=== PATIENT | female | born 1935 | race Caucasian/White ===

== ENCOUNTER → 2019-06-30 14:51 | Outpatient (CLI) | payer MEDICARE, SELFPAY ==
[2019-06-30 15:17] LABS: Bacteria Urine None Seen; RBC Urine None Seen (0-5/HPF)
[2019-06-30 15:29] LABS: Appearance Urine UA CLEAR; Bilirubin Urine UA NEGATIVE (NEGATIVE); Color Urine UA YELLOW; Glucose Urine UA NEGATIVE (Negative); Ketones Urine UA TRACE (NEGATIVE); Leukocyte Esterase Urine UA TRACE (NEGATIVE); Nitrite Urine UA NEGATIVE (Negative); Occult Blood Urine UA NEGATIVE (Negative); Protein Urine UA TRACE (Negative); Specific Gravity Urine UA >=1.030 (1.000-1.035); Urobilinogen Urine UA 0.2 E.U./dL (0.2)
[2019-06-30 15:30] LABS: Add Manual Diff / Slide Review NO; Basophils Absolute Auto 100 /uL (0-100); Basophils Percent Auto 0.7 % (0-2); Eosinophils Absolute Auto 1100 /uL (0-450); Eosinophils Percent Auto 11.2 % (2-4); Hematocrit 36.6 % (36-46); Hemoglobin 12.1 g/dL (12.0-16.0); Lymphocytes Absolute Auto 1500 /uL (1100-4500); Lymphocytes Percent Auto 16.3 % (25-40); Mean Corpuscular Hemoglobin 29.8 PG (26-34); Mean Corpuscular Volume 90.2 fL (80-100); Monocytes Absolute Auto 700 /uL (0-900); Monocytes Percent Auto 7.5 % (3-14); Neutrophils Absolute Auto 6100 /uL (1500-7000); Neutrophils Percent Auto 64.3 % (50-75); Platelet Count 289 X10^3/uL (150-400); Red Blood Cell Count 4.06 X10^6/uL (4.0-5.2); Red Cell Distribution Width 13.5 % (11.6-14.8); White Blood Cell Count 9.5 X10^3/uL (4.5-11.0)
[2019-06-30 15:36] LABS: Mucus Urine 2+ (Negative); Squamous Epithelial Cell Urine 1-5 /HPF (0-5/HPF); Transitional Epi Cells Urine 5-10/HPF (0-5/HPF); WBC Urine 1-5/HPF (0-5/HPF)
[2019-06-30 15:37] LABS: Culture Indicated Urine Cult Not Indicated
[2019-06-30 16:24] LABS: Blood Urea Nitrogen 21 mg/dL (7-17); Calcium 9.5 mg/dL (8.4-10.2); Carbon Dioxide 27 mmol/L (22-32); Chloride 102 mmol/L (98-107); Estimated Glomerular Filt Rate > 60.0 mL/min (>60); Glucose 113 mg/dL (80-110); HEMOLYSIS < 15 (0-50); Potassium 4.8 mmol/L (3.4-5.1); Sodium 139 mmol/L (137-145)
[2019-07-01 15:37] LABS: Hemoglobin A1C% w Est Avg Glu 6.5 % (4.0-6.0)
== END ==
PROVIDERS: Family Provider Family Medicine Geriatric Medicine; PCP Family Medicine Geriatric Medicine; Visit Provider Orthopaedic Surgery
DX: Z01.818 Encounter for other preprocedural examination (principal); Z01.812 Encounter for preprocedural laboratory examination; N39.9 Disorder of urinary system, unspecified; Z13.1 Encounter for screening for diabetes mellitus; R73.9 Hyperglycemia, unspecified
CPT/HCPCS: 36415; 80048; 81001; 83036; 85025; 93005

== ENCOUNTER 2019-10-28 09:43 | Inpatient (IN) | payer MEDICARE, SELFPAY ==
[2019-10-21 08:50] VITALS: BMI 26.2
[2019-10-28] VITALS (13 sets, daily range): BP systolic 94–143; BP diastolic 46–71; PULSE 68–84; RESP 15–20; TEMP 35.8–37.1; O2SAT 92–100; BMI 26.2
--- NOTE | 2019-10-28 | DI.RAD.S_ITS ---
PROCEDURE: XR HIP W PEL IF DONE RT 2V INDICATIONS: ANTERIOR RIGHT HIP TECHNIQUE: AP pelvis and lateral view of the right hip acquired. COMPARISON: [facility], CR, HIP 2V RIGHT, 05/10/2008, 10:02. FINDINGS: Spot fluoroscopic images demonstrating right hip arthroplasty in expected intraoperative alignment. Dictated by: Luis Boss M.D. on 10/28/2019 at 14:38 Approved by: Luis Boss M.D. on 10/28/2019 at 14:39
--- NOTE | 2019-10-28 06:00 | DI.RAD.S_ITS ---
PROCEDURE: XR HIP W PEL IF DONE RT 2V INDICATIONS: RIGHT POST OPERATIVE HIP TECHNIQUE: AP pelvis and lateral view of the right hip acquired. [facility] 2[facility], 10/28/2019, 13:25. FINDINGS: Bones: Patient is status post right hip arthroplasty, with hardware components in expected positions. The hip joint appears congruent. The visualized bony structures appear intact. Lower lumbar spondylosis. Soft tissues: Overlying postoperative changes are noted. No suspicious soft tissue densities. Presumed calcified fibroids projecting in the pelvis IMPRESSION: Expected postoperative appearance Dictated by: Luis Boss M.D. on 10/28/2019 at 17:10 Approved by: Luis Boss M.D. on 10/28/2019 at 17:11
[2019-10-28] MEDS: VANCOMYCIN 1,000 MG/200 ML PIGGYBACK 200 MG IV (10:15)
[2019-10-28] MEDS: LACTATED RINGERS 1,000 ML 42 ML IV ×2 (10:15→13:09)
[2019-10-28] MEDS: PREGABALIN 75 MG CAPSULE PO (10:16)
[2019-10-28] MEDS: CELECOXIB 200 MG CAPSULE PO (10:16)
[2019-10-28] MEDS: ACETAMINOPHEN 325 MG TABLET 975 MG PO (10:16)
--- NOTE | 2019-10-28 10:43 | P.OP_ITS ---
Operative Date/Time/Diagnoses Date of procedure: 10/28/19 Time of procedure: 10:43 Pre-op diagnosis: right hip OA Post-op diagnosis: same Procedure & Clinicians Procedure: right total hip arthroplasty anterior approach Same procedure as scheduled: Yes Indications: The patient has had progressively worsening right hip pain with radiographic changes consistent with arthritis. Non-operative management has failed and the patient has requested total hip replacement. The risks, benefits and alternatives to surgery were discussed with the patient prior to proceeding. Risks discussed included, but were not limited to, failure to relieve pain, leg length discrepancy, dislocation, stiffness, infection, nerve damage, deep venous thrombosis, pulmonary embolism, stroke, coma, heart attack, permanent paralysis and , as well as the potential need for eventual revision of the prosthetic. Surgeon: Doris Huang [employer]porary Help [employer] Referral Clerk: Chong Pretty Anesthesia Type: General and Spinal Operative Notes Findings: severe right hip OA, soft bone, adequate stability Closure Type: primary Specimen(s): none sent Prosthetic devices, grafts, tissues, transplants, or devices: Huang [employer]hew R3 50 cup, 32 by -3 femoral head, 16.5 mm screw, size 5 standard offset anthology Estimated Blood Loss (mL): 250 Blood products transfused: none Procedure in detail: The patient was brought to the operating room. Patient was carefully positioned in the supine position. Time-out was performed and antibiotics were given. Anesthesia was induced. She was positioned in the on the table in order to allow hyperextension of the hip. The right lower extremity was prepped and draped in a standard sterile fashion. An anterior right hip incision was made 1 fingerbreadth lateral to the anterior superior iliac spine and extended distally towards the greater trochanter. Dissection was carried out through skin and subcutaneous tissues. The skin and subcutaneous tissues were carefully injected with Lidocaine with epi. Superficial hemostasis was achieved. The fascia over the tensor fascia marina was defined and incised with a knife. Two Allis clamps were used to grasp the fascia. Tensor fascia marina was retracted laterally. A gelpi retractor was placed. Dissection was carried out down along the neck. The circumflex vessels were carefully identified and cauterized with the Aqua Mantis. There was good visualization of the femoral neck. A Cobra was placed superior to the neck and the gluteus fibers were carefully stripped from that superior aspect of the capsule. A 2nd retractor was placed along the inferior aspect of the neck. The rectus insertion along the capsule was partially released. A 3rd retractor that was then gently placed over the rim of the acetabulum under the rectus. Capsule was carefully incised and released from the intertrochanteric line circumferentially superior to the mid sagittal line and inferiorly to the mid sagittal line until the lesser trochanter was palpable. A tag stitch was placed both in the superior and inferior limb of the capsular insertion. Along the acetabulum capsule was also released up to the mid sagittal 12:00 position. A portion of the labrum was resected. A saw was used to perform an osteotomy at the level of the intertrochanteric line and the junction of the superior femoral neck leaving approximately 1 finger breath of residual inferior neck above the lesser trochanter. A 2nd cut was made along the femoral neck at the base of the head and a napkin ring of neck was removed. Corkscrew was placed in the femoral head and the head was removed without difficulty. Retractors were then repositioned around the acetabulum. Residual labrum was resected and additional osteophytes were removed. A reamer that was 4 mm below the templated size was placed by hand in the acetabulum and it was reamed to centralize the acetabulum. It was then reamed up to 2 under the templated size and fluoroscopy was brought in to confirm the position of the reaming and depth of reaming. I reamed 1 under the anticipated size and touched the rim with line to line reaming. A trial cup was placed and noted that it was appropriately sized and fluoroscopy confirmed position and depth. The component was open and inserted without difficulty fluoroscopic imaging was used to confirm that the cup had been adequately seated and was well positioned. The for cup was further stabilized with a single 6.5 mm screw. The cup was tested and noted to be stable. Attention was then directed to the femur. The femur was gently hyperextended additional capsular release was performed as needed in order to allow adequate visualization of the proximal femur with elevation of the femur. Patient was placed in a hyperextended slightly adducted position with maximum external rotation. Box osteotome was used to check for any residual neck as well as sclerotic bone along the trochanter. [place] pepper was placed in the femur. Additional broaching was performed. Canal finder was used to determine the alignment of the canal and position. Size 1 broach was placed. The canal was then appropriately broached up to the templated size as long as there was adequate stability of the broach and serial advancement of the broach without excessive impingement. Specific attention was directed at avoiding varus attempting to direct the distal aspect of the broach more anteriorly and avoiding excessive anteversion. Trial reduction showed acceptable range of motion, good stability, no posterior impingement, caodaism of leg length and appropriate lateral shuck. I also hyperflexed the hip and checked that there was no impingement anteriorly and there was good stability with flexion, adduction and internal rotation. Marcaine and Exparel were injected.. The stem was placed without difficulty. Repeat trial reduction and x-ray showed acceptable overall position, length, and no evidence of the femoral fracture. Final head was placed. Wound was meticulously irrigated with normal saline. The hip was reduced and additional Exparel and Marcaine were injected. The capsule was closed with interrupted nonabsorbable sutures. The fascia of the tensor was closed with interrupted and running Vicryl. No drain was placed. Any tensor fascia marina muscle that appeared to be contused or injured which was a minimal amount was carefully resected. Capsule around the tensor was injected with Exparel and Marcaine. The skin was closed with barbed stitches for the subcutaneous tissue and skin. We also used surgical glue. The wound was dressed sterilely. Brief Betadine soak was also used and was meticulously irrigated with normal saline. Patient was transferred to recovery room in satisfactory condition. Complications: none Post-operative Condition: stable Disposition: Acute Care Plan for aftercare: The patient will be maintained on a standard total hip replacement protocol with weight bearing as tolerated and anterior hip precautions. The patient will receive Aspirin and sequential compression devices for DVT prophylaxis. The patient will be discharged home when safe for the home environment.
--- NOTE | 2019-10-28 10:43 | PM.PREOP ---
Pre-operative Note Interval Note History & Physical reviewed/Exam performed by Physician: Yes Changes to H&P: No
[2019-10-28] MEDS: CEFAZOLIN 2 GM/100 ML FROZ.PIGGY IV ×2 (11:31→20:10)
--- NOTE | 2019-10-28 12:06 | SUR.OPER ---
Supine on padded [place]aton table with bilateral legs secured in padded positioning boots and suspended in positioning spars, operative leg in traction per surgeon. Head on one pillow. Arm on non-operative side secured on padded armboard <90 degrees abduction. Arm on operative side padded and resting across chest then secured with tape over sheet. Padded perineal post in place per surgeon.
[2019-10-28] MEDS: BUPIVACAINE LIPOSOME 266 MG/20 ML VIAL INJ (13:57)
[2019-10-28] MEDS: BUPIVACAINE 0.25% W/ EPI 30 ML VIAL INJ (13:57)
--- NOTE | 2019-10-28 15:16 | SUR.PHASEI ---
Report called to [facility]
--- NOTE | 2019-10-28 15:27 | SUR.PHASEI ---
Patient transferred to the floor with belongings bag, brown bag, glasses and red jacket. VS Stable. O2 sat 87%RA, 98% 2lnc. Report given to Tunde. Rt hip dressing CDI. Patient moving romana feet.
--- NOTE | 2019-10-28 15:46 | PC.NURSE ---
Pt arrived from PACU at approx 1510. Drowsy but alert and oriented. VSS 2L NC. Drsg c/d/i to anterior hip. Float RN completing admission assessment. Student nurse and instructor connecting IVF. Supportive spouse at bedside. Oriented to room and call system. Bed alarm on for safety.
[2019-10-28] MEDS: OXYCODONE IR 5 MG TABLET PO ×2 (15:54→20:06)
[2019-10-28] MEDS: LACTATED RINGERS 1,000 ML 125 ML IV (16:01)
--- NOTE | 2019-10-28 16:08 | PC.NURSE ---
IV site on R wrist was flushed. Tubing is patent. IV site is asymptomatic and intact. IV fluids running LR now @ 125 mls/hr.
[2019-10-28] MEDS: ACETAMINOPHEN 325 MG TABLET 650 MG PO ×2 (16:29→20:07)
[2019-10-28] MEDS: IBUPROFEN 400 MG TABLET PO ×2 (16:34→20:07)
[2019-10-28] MEDS: METFORMIN HCL 500 MG TABLET PO (20:08)
[2019-10-28] MEDS: ASPIRIN EC 81 MG TABLET PO (20:08)
[2019-10-28] MEDS: DOCUSATE 100 MG CAPSULE PO (20:09)
--- NOTE | 2019-10-28 22:19 | PC.NURSE ---
Patient arrived to unit around 15:10. Patient is alert and awake with at the bedside. Recieved pain medication around 20:10, Acetaminophen 650mg, ibuprofen 400mg and oycodone 5mg with Nurse Sidra. Reporting a pain of 4/10 and states that it is tolerable. She states that she has no pain or numbness. Got up and went to the bathroom with a front wheeled walker and a one person assist around 20:00 She is now in bed with call light in place and states she is comfortable. Patient states she will call when she wants to get up and go to the bathroom again. Bed is in low and locked position.
[2019-10-29] VITALS (7 sets, daily range): BP systolic 106–171; BP diastolic 47–75; PULSE 71–78; RESP 17–19; TEMP 36.5–36.7; O2SAT 91–97
[2019-10-29] MEDS: OXYCODONE IR 5 MG TABLET PO ×3 (00:04→10:09)
[2019-10-29] MEDS: IBUPROFEN 400 MG TABLET PO ×6 (00:41→21:05)
[2019-10-29] MEDS: LACTATED RINGERS 1,000 ML 125 ML IV (00:42)
[2019-10-29] MEDS: CEFAZOLIN 2 GM/100 ML FROZ.PIGGY IV (04:31)
[2019-10-29 05:50] LABS: Hematocrit 26.1 % (36-46); Hemoglobin 9.1 g/dL (12.0-16.0)
--- NOTE | 2019-10-29 08:51 | PC.NURSE ---
Addendum entered by Dottie Portillo R.N. 10/29/19 15:52: Pt ambulated in room to go to with 1PA, tolerated well, sat in chair most of shift, able to reposition self. Pt eager for afternoon PT session, Spoke with Kadi, PT at 1430, will plan to see pt next. Kadi updated at 1450, pt has daughter that needs to drive from [place] that will be staying with the Pt and pt's home on [facility]. After PT session, PT reported to both this advertising writer and Evening Rn Sidra that pt walked a short distance and felt nauseated, returned to bed, pt will need more PT sessions prior to discharge. Original Note: Day Shift- Pt ambulated OOB with PT, PT Ferny reported pt had minimal walking in room, felt dizzy, sat in chair, BP 171/75, Pulse 78. Upon reassessment, BP decreased to 127/53, pulse 72. Pt rates 2/10 aching to right anterior hip with rest, 4-5/10 with movement and settles with rest, ice pack in place, pt aware to have intermittently. CMS +. Right hip anterior aquacel dressing CDI. Call light within reach, Pt's Andre in room as well.
--- NOTE | 2019-10-29 08:56 | PT.IIE ---
Current Diagnoses Unilateral primary osteoarthritis, right hip (10/28/19) Surgery Performed Operation Date: 10/28/19 12:15 Actual Procedures p Total Hip Arthroplasty/Anterior Approach(Right) - Doris Huang MD Surgical History (Last Updated 10/26/19 @ 14:10 by Richa Dupree, RN) History of arthroplasty of left hip (Acute) Hx of bilateral cataract extraction (Acute 2015) Medical History (Last Updated 10/26/19 @ 14:13 by Richa Dupree RN) Asthma (Acute) Depression (Acute) Hearing loss (Acute) HLD (hyperlipidemia) (Acute) HTN (hypertension) (Acute) Osteoarthritis (Acute) Pre-diabetes (Acute) RLS (restless legs syndrome) (Acute) Physical Therapy Inpatient Evaluation/Re-Eval M1 PT/OT-IP Prior Functional Status Start: 10/29/19 07:44 Freq: NEEDED Status: Active Protocol: Document 10/29/19 07:45 HH (Rec: 10/29/19 08:55 HH [id number]) Medical Review Prior Functional Status Medical History Reviewed Yes Diet/Fluid Consistency Regular Communication no communication deficits noted. ABle to make needs known Mobility and Gait Pt does not use any AD for all mobility. She states she tends to walk with an antalgic gait. Activities of Daily Living and IADL's Independent for all ADLs and IADLs. does assist her to charisse socks due to limited hip mobility. Social History Household Members spouse Living Arrangements House Number of Floors (Floors) Two Floors Number of Stairs To Enter/Railing? Daylight saving apartment Pt lives on [facility] [facility] [address]. Has access to bathroom and bedroom tub shower on [facility], walk in shower on downstairs with showerseat and grab bars 3 KILEY with L rail and pillar for support. Home Environment Standard Height Toilet,Walk in Shower Home Equipment Straight Cane,Raised Toilet Seat w/Armrests,Cash Room Clerk,Grab Bars Near Toilet,Grab Bars In Shower Employment Status Retired Additional Social History Comment Pt lives with her Luis in [place]. Luis uses a SPC for mobility but he states he was able to assist pt as needed. (He also has POARCH). Pt states her dtr will be able to pick her up upon d/c and will stay with her as long as she needed. M2 PT-IP Current Condition Start: 10/29/19 07:44 Freq: NEEDED Status: Active Protocol: Document 10/29/19 07:45 (Rec: 10/29/19 08:55 [id number]) Physical Therapy Current Condition Current Condition Evaluation Date 10/29/19 Treatment Diagnosis R BOLA (ant approach), difficulty in walking Onset Date 10/28/19 Precautions Anterior Hip Precautions No Hip Extension,No Hip External Rotation Weight Bearing Status Weight Bearing Status Weight Bear as Tolerated M3 PT-IP Subjective Start: 10/29/19 07:44 Freq: NEEDED Status: Active Protocol: Document 10/29/19 07:45 HH (Rec: 10/29/19 08:55 [id number]) Subjective Physical Therapy Visit Type Type Initial Evaluation Visit Start Time 07:45 Visit Stop Time 08:17 Total Visit Minutes 32 Notes Pt's attended session Number of COMPOSITE TECHNICIAN Visits 0 Physical Therapy Visit Comments Patient Comments Im feeling pretty good for my hip but i start getting dizzy now. Patient Goals To return home with and dtr assistance. Therapy Pain Assessment Pain When Pain Assessed During Mobility Pain Present Pain Present Pain Reported Location Right Anterior Hip Intensity 3 Description Aching Pain Management Techniques Apply Cold,Timing of Activity with Medications M4 PT-IP Mobility and Gait Start: 10/29/19 07:44 Freq: NEEDED Status: Active Protocol: Document 10/29/19 07:45 HH (Rec: 10/29/19 08:55 [id number]) PT-Bed Mobility Assessment Supine to Sit Supine to Sit Contact Guard Assistance,Head of Bed Elevated,Bedrails Scooting Scooting to Edge of Bed Contact Guard Assistance PT-Transfer Assessment Sit to and From Stand Sit to and from Stand Contact Guard Assistance,Use of Upper Extremities Equipment Transfer Assistive Device Gait Belt,Front Wheeled Walker Orthotic/Prosthetic Devices or Brace: No Transfers Transfer Destination Bed,Chair Transfer Technique amb with FWW Transfer Ability Level of Assist Contact Guard Assistance Comments Mobility Comments Pt was in bed upon assessment. Spouse at bedside. BP at 111/ 47 HR 73. Pt stated she just went to bathroom with nursing staff an hour ago with 1PA only. Pt reports she started having new onset of dizziness and denied any hx of balance/ vestibular issues. Pt rested for 5 mins and BP remained stable. She felt better with HOB elevated to 40 degrees then proceeded to complete supine to sit by using gait belt to pivot her RLE towards L side. Pt overall did it slowly. She sat at the EOB for 5 mins due to continuous dizziness BP at 130/58 HR 80. Pt then stood up with staggered stance and FWW with CGA. She then amb from L side of the bed to bedside chair. Pt reports hip pain increased and amb with a mild antalgic gait. She was able to approach chair appropriately and descend with the use of armrests and staggered stance. But she reports increased dizziness and BP elevated to 171/75 HR 78 and took 6 mins to return to 127/53 HR 72. Notified nursing. Call light placed within reach. Gait Assessment Gait Gait Assistance Required: Contact Guard Assist Distance (Feet) 8 Able to Maintain Weight Bearing Status Yes During Gait Assistive Devices Assistive Device Gait Belt,Front Wheeled Walker Orthotic/Prosthetic Devices or Brace: No Gait Deviations General Gait Pattern Within Normal Limits,Antalgic, Decreased Stride Length, Decreased Feet Clearance Factors Limiting Gait Function Factors Limiting Gait Function Decreased Activity Tolerance, Decreased Strength,Limited Range of Motion,Pain,Poor Balance Comments Gait Comments see mobility comments Stair Climbing Assessment Comments Stair Climbing Comments unable to assess due to dizziness PT-Balance Assessment Sitting Balance and Reactions Static Sitting Balance Ability Normal Dynamic Sitting Balance Ability Normal Standing Balance and Reactions Static Standing Balance Ability Normal Dynamic Standing Balance Ability Normal Device Used FWW M5 PT-IP Objective Assessments Start: 10/29/19 07:44 Freq: NEEDED Status: Active Protocol: Document 10/29/19 07:45 (Rec: 10/29/19 08:55 [id number]) Orientation Orientation/Cognition Level of Alertness Alert Orientation Name,Age,Birthday,Month,Date, Year,Day of Week,Place, Situation Language Function Ability No Deficits Noted Safety Awareness Understands Safety Issues Gross Range of Motion Upper Extremity ROM Assessment Within Functional Limits Lower Extremity ROM Assessment Right Impaired Strength Upper Extremity Strength Assessment Within Functional Limits Lower Extremity Strength Assessment Right Impaired Hip 4/5 Knee 4+/5 Ankle 5/5 Coordination Assessment Gross Coordination Gross Coordination WNL Sensation Assessment Sensation Gross Sensation WNL Muscle Tone Muscle Tone WNL Yes M6 PT-IP Treatment Start: 10/29/19 07:44 Freq: NEEDED Status: Active Protocol: Document 10/29/19 07:45 HH (Rec: 10/29/19 08:55 [id number]) Physical Therapy Treatment Exercises Exercises Ankle Pumps,Quad Sets,Heel Slides Education Education Provided Precautions,Weight Bearing Status,Post-Op Packet,Safety M7 PT-IP Assessment and Plan Start: 10/29/19 07:44 Freq: NEEDED Status: Active Protocol: Document 10/29/19 07:45 HH (Rec: 10/29/19 08:55 [id number]) PT Summary Assessment and Plan Potential Rehabilitation Potential Excellent Status of Condition at Evaluation Evolving Summary Impairments Pain,ROM,Strength,Balance, Sensation,Bed Mobility, Transfers,Gait,Activity Tolerance Assessment Summary This eval is low complexity for this 84yo lady s/p POD 1 R BOLA (anterior approach). Upon assessment, Pt has new onset of dizziness but -ve signs of OHTN. Pt 's BP did elevate to 171/75 after amb possibly due to increase in hip pain. Notified nursing after. Pt overall did fairly well with CGA and FWW but medically unstable at this point which will require 1-2 more visits to observe her progress, but expect pt to be able to return home with family assistance. Goals Bed Mobility Goal Standby Assistance Transfer Goal Standby Assistance,Front Wheeled Walker Gait Goal Standby Assistance,Front Wheel Walker Gait Distance 150 Other Goals 3 KILEY with L rail Days to Meet Goals 3 Frequency of Treatment Frequency Of Treatment Twice a Day Treatment Plan Physical Therapy Treatment Plan Bed Mobility Training,Transfer Training,Gait Training, Therapeutic Exercise,Balance Retraining,Post Op Education, Discharge Planning,Hot or Cold Pack,Manual Therapy Other Recommendations and Next Treatment check VSS Focus mobility as yaritza CG training with the use of gait and stair training Recommendations To Nursing Amount of Assist Needed 1 Person Assist Discharge Recommendations PT Discharge Recommendations Home with Assistance, Outpatient PT Transportation Needs at Discharge Private Vehicle
[2019-10-29] MEDS: LOSARTAN 50 MG TABLET PO (09:01)
[2019-10-29] MEDS: ROSUVASTATIN 10 MG TABLET PO (09:01)
[2019-10-29] MEDS: METFORMIN HCL 500 MG TABLET PO ×2 (09:01→21:05)
[2019-10-29] MEDS: DOCUSATE 100 MG CAPSULE PO ×2 (09:02→21:05)
[2019-10-29] MEDS: CITALOPRAM 20 MG TABLET PO (09:02)
[2019-10-29] MEDS: ASPIRIN EC 81 MG TABLET PO ×2 (09:02→21:05)
[2019-10-29] MEDS: ACETAMINOPHEN 325 MG TABLET 650 MG PO ×3 (09:02→21:04)
--- NOTE | 2019-10-29 13:03 | P.PN_ITS ---
Subjective Subjective Date Patient Seen: 10/29/19 Time Patient Seen: 07:22 Interval history: POD #1 s/p anterior RTHA w Dr. Huang. Complains of mild- moderate pain in hip. Has not mobilized with PT. Voiding without difficulty or assistance. Denies fever, chills, chest pain, shortness of breath. Exam Vital Signs (past 8 hours): - 10/29/19 08:10 10/29/19 08:13 Temperature 98.1 F Pulse Rate 78 72 Respiratory Rate 18 Blood Pressure 171/75 H 127/53 L Pulse Oximetry 97 Oxygen Delivery Method Room Air Oxygen Flow Rate 0 Narrative Exam Narrative: 84 year old female lying comfortably in bed, in no apparent distress. A&Ox3. Dressing CDI, SCDs in place. Sensory function grossly intact to light touch in LE BL. Able to actively dorsiflex/plantar flex BL. Dorsalis pedis 2+ BL. Calves warm, soft, compressible, non tender to palpation. Objective Labs Result Diagrams: 10/29/19 05:05 Labs: Laboratory Results - last 24 hr 10/29/19 05:05 Hgb 9.1 L Hct 26.1 L Assessment & Plan Post-op Postoperative Procedures: Procedures Operation Date: 10/28/19 12:15 Actual Procedures Side Surgeon p Total Hip Arthroplasty/Anterior Approach Right Doris Huang MD Postoperative plan narrative: Possible discharge home today pending PT clearance Continue current pain management Continue SCDs for DVT prophylaxis Mobilize with PT Time Spent With Patient Time with patient: less than 15 minutes Quality VTE Deep Vein Thrombosis/Pulmonary Embolism Present on Admission: No
--- NOTE | 2019-10-29 16:15 | PT.IPTN ---
Current Diagnoses Unilateral primary osteoarthritis, right hip (10/28/19) Surgery Performed Operation Date: 10/28/19 12:15 Actual Procedures p Total Hip Arthroplasty/Anterior Approach(Right) - Doris Huang MD Physical Therapy Treatment Note M2 PT-IP Current Condition Start: 10/29/19 07:44 Freq: NEEDED Status: Active Protocol: Document 10/29/19 07:45 HH (Rec: 10/29/19 08:55 HH [id number]) Physical Therapy Current Condition Current Condition Evaluation Date 10/29/19 Treatment Diagnosis R BOLA (ant approach), difficulty in walking Onset Date 10/28/19 Precautions Anterior Hip Precautions No Hip Extension,No Hip External Rotation Weight Bearing Status Weight Bearing Status Weight Bear as Tolerated M3 PT-IP Subjective Start: 10/29/19 07:44 Freq: NEEDED Status: Active Protocol: Document 10/29/19 15:15 LJ (Rec: 10/29/19 16:15 LJ [email or web address]) Subjective Physical Therapy Visit Type Type Treatment Note Visit Start Time 15:15 Visit Stop Time 15:34 Total Visit Minutes 19 Number of BALLING HEAD TENDER Visits 1 Physical Therapy Visit Comments Patient Comments pt states she is feeling much better than this morning and is no longer dizzy. States she would like to go home today Therapy Pain Assessment Pain When Pain Assessed During Mobility Pain Present Pain Present Pain Reported M4 PT-IP Mobility and Gait Start: 10/29/19 07:44 Freq: NEEDED Status: Active Protocol: Document 10/29/19 15:15 LJ (Rec: 10/29/19 16:15 LJ [email or web address]) PT-Bed Mobility Assessment Sit to Supine Sit to Supine Contact Guard Assistance, Minimal Assistance Scooting Scooting to Edge of Bed Contact Guard Assistance PT-Transfer Assessment Sit to and From Stand Sit to and from Stand Contact Guard Assistance,Use of Upper Extremities Equipment Transfer Assistive Device Gait Belt,Front Wheeled Walker Orthotic/Prosthetic Devices or Brace: No Transfers Transfer Destination Bed,Wheelchair Transfer Ability Level of Assist Contact Guard Assistance Comments Mobility Comments pt was sitting in chair with in room. Pt required CGA and verbal cues to scoot to edge of chair to stand. Pt had no c/o dizziness upon standing. On returning to bed after ambulation pt was CGA with Kwabena for lifting RLE into bed. She was able to scoot herself up in bed with assist to stabilize right foot. Gait Assessment Gait Gait Assistance Required: Contact Guard Assist Distance (Feet) 30 Able to Maintain Weight Bearing Status Yes During Gait Assistive Devices Assistive Device Gait Belt,Front Wheeled Walker Orthotic/Prosthetic Devices or Brace: No Gait Deviations General Gait Pattern Within Normal Limits,Antalgic, Decreased Stride Length, Decreased Feet Clearance Factors Limiting Gait Function Factors Limiting Gait Function Decreased Activity Tolerance, Decreased Strength,Limited Range of Motion,Pain,Poor Balance Comments Gait Comments Pt ambulated CGA from chair in room to ~20 feet in hallway when she started getting nauseated and needed to sit in WC. Pt requested to go back to room and return to bed. She is able to manage a FWW well and has good body mechanics. Stair Climbing Assessment Comments Stair Climbing Comments unable at this time due to nausea M5 PT-IP Objective Assessments Start: 10/29/19 07:44 Freq: NEEDED Status: Active Protocol: Document 10/29/19 07:45 HH (Rec: 10/29/19 08:55 HH [id number]) Orientation Orientation/Cognition Level of Alertness Alert Orientation Name,Age,Birthday,Month,Date, Year,Day of Week,Place, Situation Language Function Ability No Deficits Noted Safety Awareness Understands Safety Issues Gross Range of Motion Upper Extremity ROM Assessment Within Functional Limits Lower Extremity ROM Assessment Right Impaired Strength Upper Extremity Strength Assessment Within Functional Limits Lower Extremity Strength Assessment Right Impaired Hip 4/5 Knee 4+/5 Ankle 5/5 Coordination Assessment Gross Coordination Gross Coordination WNL Sensation Assessment Sensation Gross Sensation WNL Muscle Tone Muscle Tone WNL Yes M6 PT-IP Treatment Start: 10/29/19 07:44 Freq: NEEDED Status: Active Protocol: Document 10/29/19 15:15 LJ (Rec: 10/29/19 16:15 LJ [email or web address]) Physical Therapy Treatment Other Treatments Other Treatment Performed standing marching, weight shifting M7 PT-IP Assessment and Plan Start: 10/29/19 07:44 Freq: NEEDED Status: Active Protocol: Document 10/29/19 15:15 LJ (Rec: 10/29/19 16:15 LJ [id number]) PT Summary Assessment and Plan Potential Rehabilitation Potential Excellent Status of Condition at Evaluation Evolving Summary Impairments Pain,ROM,Strength,Balance, Sensation,Bed Mobility, Transfers,Gait,Activity Tolerance Assessment Summary Pt is SBA with mobility and demonstrates strength to ambulate with FWW. She required assist with RLE in getting back to bed and was able to reposition SBA. Pt had difficulty in ambulating in hallway after ~20' when she needed to sit in WC due to nausea. She was unable to trial stairs and will need to reassess gait prior to attempting stairs for discharge Goals Bed Mobility Goal Standby Assistance Transfer Goal Standby Assistance,Front Wheeled Walker Gait Goal Standby Assistance,Front Wheel Walker Gait Distance 150 Other Goals 3 KILEY with L rail Days to Meet Goals 3 Frequency of Treatment Frequency Of Treatment Twice a Day Treatment Plan Physical Therapy Treatment Plan Bed Mobility Training,Transfer Training,Gait Training, Therapeutic Exercise,Balance Retraining,Post Op Education, Discharge Planning,Hot or Cold Pack,Manual Therapy Other Recommendations and Next Treatment check VSS Focus mobility as yaritza CG training with the use of gait and stair training Recommendations To Nursing Amount of Assist Needed 1 Person Assist Discharge Recommendations PT Discharge Recommendations Home with Assistance, Outpatient PT Transportation Needs at Discharge Private Vehicle
[2019-10-29] MEDS: ONDANSETRON 4 MG ODT PO (18:12)
[2019-10-30 00:01] VITALS: BP 108/45; PULSE 76; RESP 16; TEMP 36.9; O2SAT 93
[2019-10-30] MEDS: IBUPROFEN 400 MG TABLET PO ×3 (01:18→08:00)
[2019-10-30 05:48] VITALS: BP 118/48; PULSE 88; RESP 16; TEMP 37; O2SAT 94
[2019-10-30 07:34] VITALS: BP 118/50; PULSE 77; RESP 14; TEMP 36.4; O2SAT 94
[2019-10-30] MEDS: ONDANSETRON 4 MG ODT PO (07:59)
[2019-10-30] MEDS: ASPIRIN EC 81 MG TABLET PO (08:00)
[2019-10-30] MEDS: CITALOPRAM 20 MG TABLET PO (08:00)
[2019-10-30] MEDS: ACETAMINOPHEN 325 MG TABLET 650 MG PO (08:00)
[2019-10-30] MEDS: ROSUVASTATIN 10 MG TABLET PO (08:00)
[2019-10-30] MEDS: METFORMIN HCL 500 MG TABLET PO (08:00)
[2019-10-30] MEDS: LOSARTAN 50 MG TABLET PO (08:00)
[2019-10-30] MEDS: DOCUSATE 100 MG CAPSULE PO (08:00)
[2019-10-30] MEDS: polyethylene glycoL 3350 17 GM POWD.PACK PO (08:05)
[2019-10-30] MEDS: SODIUM CHLORIDE 0.9% FLUSH 10 ML IV (08:05)
--- NOTE | 2019-10-30 09:22 | CM.IDA ---
Discharge Planning/Care Management CM Discharge Assessment Start: 10/30/19 08:58 Freq: Status: Active Protocol: Document 10/30/19 08:58 MARLYS (Rec: 10/30/19 09:22 MARLYS [id number]) Discharge Planning Assessment Assigned Forensic Computer Examiner GILMER Rivera DPOA/Assigned Designee Name Andre Ware, spouse Contact Information [phone] Advance Directives? No Prior Living Arrangements House Household Members spouse Independent with ADL's Yes Is patient alert and oriented? Yes Comment Spouse assists w/ dressing as needed d/t hip pain Barriers to Discharge No Comment Pt is now POD#2 from Hip surgery with Dr Huang PCP: Beti Camargo Payer: MCR /ZOEP Met w/pt yesterday, POD#1, was sleeping on the window seat. Therapy team recommending return home w/ spouse to assist and outpt PT; pt has planned for this and feels confident she has what she needs. No barriers identified to safe return home w/spouse, unless there's a signaificant change in functional status. Likely DC home today back to [place]. GILMER Simmons Discharge Plan Home Transportation Arrangement Family Referrals Initiated None needed
--- NOTE | 2019-10-30 09:55 | PT.IPTN ---
Current Diagnoses Unilateral primary osteoarthritis, right hip (10/28/19) Surgery Performed Operation Date: 10/28/19 12:15 Actual Procedures p Total Hip Arthroplasty/Anterior Approach(Right) - Doris Huang MD Physical Therapy Treatment Note M2 PT-IP Current Condition Start: 10/29/19 07:44 Freq: NEEDED Status: Active Protocol: Document 10/29/19 07:45 HH (Rec: 10/29/19 08:55 HH [id number]) Physical Therapy Current Condition Current Condition Evaluation Date 10/29/19 Treatment Diagnosis R BOLA (ant approach), difficulty in walking Onset Date 10/28/19 Precautions Anterior Hip Precautions No Hip Extension,No Hip External Rotation Weight Bearing Status Weight Bearing Status Weight Bear as Tolerated M3 PT-IP Subjective Start: 10/29/19 07:44 Freq: NEEDED Status: Active Protocol: Document 10/30/19 09:27 KS (Rec: 10/30/19 12:06 KS [id number]) Subjective Physical Therapy Visit Type Type Treatment Note Visit Start Time 09:27 Visit Stop Time 09:55 Total Visit Minutes 28 Number of BAND TOP MAKER Visits 2 Physical Therapy Visit Comments Patient Comments Pt states that she is feeling better and has less nausea. Patient Goals To return home with and dtr assistance. Therapy Pain Assessment Pain When Pain Assessed During Mobility Pain Present Pain Present Pain Reported Location Right Anterior Hip Intensity 3 Scale Used Numeric (1 - 10) Description Aching Pain Management Techniques Re-positioning,Timing of Activity with Medications M4 PT-IP Mobility and Gait Start: 10/29/19 07:44 Freq: NEEDED Status: Active Protocol: Document 10/30/19 09:27 KS (Rec: 10/30/19 12:06 KS [id number]) PT-Bed Mobility Assessment Supine to Sit Supine to Sit Contact Guard Assistance,Head of Bed Elevated Sit to Supine Sit to Supine Contact Guard Assistance, Minimal Assistance Scooting Scooting to Edge of Bed Contact Guard Assistance PT-Transfer Assessment Sit to and From Stand Sit to and from Stand Standby Assistance,Contact Guard Assistance,Use of Upper Extremities Equipment Transfer Assistive Device Gait Belt,Front Wheeled Walker Orthotic/Prosthetic Devices or Brace: No Transfers Transfer Destination Bed,Toilet,Wheelchair Transfer Technique amb with FWW Transfer Ability Level of Assist Standby Assistance,Contact Guard Assistance Comments Mobility Comments Pt was in bed upon arrival from therapy w/ in room. Pt was CGA to Min A for RLE guidance sup<>sit w/ HOB slightly elevated. CGA for scooting to EOB and sit<>stand w/ FWW and min cues for hand placement. Pt then ambulated to toilet w/ FWW and SBA, and demonstrated proper use of grab bar to lower down onto toilet SBA. Pt then ambulated to hallway and sat in w/c CGA w/ cues to reach back for w/c arms. Pt then completed stair training, returned to room. SBA for sit<>stand w/ FWW from w/c and ambulating to bed. SBA for stand<>sit back in bed and sit<>sup w/ use of gait belt to guide R LE back into bed. Pt left in bed w/ all needs in reach. Gait Assessment Gait Gait Assistance Required: Standby Assistance,Contact Guard Assist Distance (Feet) 60 Able to Maintain Weight Bearing Status Yes During Gait Assistive Devices Assistive Device Gait Belt,Front Wheeled Walker Orthotic/Prosthetic Devices or Brace: No Gait Deviations General Gait Pattern Within Normal Limits,Antalgic, Decreased Stride Length, Decreased Feet Clearance Factors Limiting Gait Function Factors Limiting Gait Function Decreased Activity Tolerance, Decreased Strength,Limited Range of Motion,Pain,Poor Balance Comments Gait Comments Pt ambulated SBA to CGA ~60 ft w/ FWW. Pt demonstrated proper use of FWW. Decreased stride length and foot clearance d/t decreased tolerance for activity and decreased strength. Stair Climbing Assessment Evaluation Level of Assist On Stairs Standby Assistance,Contact Guard Assistance,1 Person Assistance Devices Stair Climbing Assistive Devices Left Railing Technique/Endurance Stair Climbing Direction Ascend and Descend Stair Climbing Technique Step to Step Number of Steps Climbed 3 Stair Climbing Set # Repetitions (reps) 1 Comments Stair Climbing Comments Pt able to ascend/descend 3 steps w/ step to step pattern and SBA to CGA. Pt instructed in proper sequencing and was able to perform correctly w/ no LOB. Instructed pt and to bring FWW up stairs before pt ascends and downstairs before descent. Pt states she feels safe to complete stairs at home. PT-Balance Assessment Sitting Balance and Reactions Static Sitting Balance Ability Normal Dynamic Sitting Balance Ability Normal Standing Balance and Reactions Static Standing Balance Ability Normal Dynamic Standing Balance Ability Good Device Used FWW M5 PT-IP Objective Assessments Start: 10/29/19 07:44 Freq: NEEDED Status: Active Protocol: Document 10/29/19 07:45 HH (Rec: 10/29/19 08:55 HH [id number]) Orientation Orientation/Cognition Level of Alertness Alert Orientation Name,Age,Birthday,Month,Date, Year,Day of Week,Place, Situation Language Function Ability No Deficits Noted Safety Awareness Understands Safety Issues Gross Range of Motion Upper Extremity ROM Assessment Within Functional Limits Lower Extremity ROM Assessment Right Impaired Strength Upper Extremity Strength Assessment Within Functional Limits Lower Extremity Strength Assessment Right Impaired Hip 4/5 Knee 4+/5 Ankle 5/5 Coordination Assessment Gross Coordination Gross Coordination WNL Sensation Assessment Sensation Gross Sensation WNL Muscle Tone Muscle Tone WNL Yes M6 PT-IP Treatment Start: 10/29/19 07:44 Freq: NEEDED Status: Active Protocol: Document 10/30/19 09:27 KS (Rec: 10/30/19 12:06 KS [id number]) Physical Therapy Treatment Education Education Provided Precautions,Weight Bearing Status,Post-Op Packet,Safety Other Treatments Other Treatment Performed Instructed pt how to use gait belt to self assist RLE into and out of bed. Discussed OP therapy. M7 PT-IP Assessment and Plan Start: 10/29/19 07:44 Freq: NEEDED Status: Active Protocol: Document 10/30/19 09:27 KS (Rec: 10/30/19 12:06 KS [id number]) PT Summary Assessment and Plan Potential Rehabilitation Potential Excellent Status of Condition at Evaluation Evolving Summary Impairments Pain,ROM,Strength,Balance, Sensation,Bed Mobility, Transfers,Gait,Activity Tolerance Assessment Summary Pt is SBA to CGA for mobility and ambulation w/ FWW. Pt needed Min A for RLE guidance, but BAND TOP MAKER then instructed pt how to use gait belt which she was able to complete successfully. Pt ambulated ~ 60ft w/ FWW and proper technique, then safely ascended/descended 3 steps w/ L hand rail and SBA to CGA and step to gait pattern and correct sequencing. Discussed benefits of OP therapy w/ patient to assess strength and ROM deficits and she said she plans on attending PT soon. Goals Bed Mobility Goal Standby Assistance Transfer Goal Standby Assistance,Front Wheeled Walker Gait Goal Standby Assistance,Front Wheel Walker Gait Distance 150 Other Goals 3 KILEY with L rail Days to Meet Goals 3 Frequency of Treatment Frequency Of Treatment Twice a Day Treatment Plan Physical Therapy Treatment Plan Bed Mobility Training,Transfer Training,Gait Training, Therapeutic Exercise,Balance Retraining,Post Op Education, Discharge Planning,Hot or Cold Pack,Manual Therapy Other Recommendations and Next Treatment check VSS Focus mobility as yaritza CG training with the use of gait and stair training Recommendations To Nursing Amount of Assist Needed 1 Person Assist Discharge Recommendations PT Discharge Recommendations Home with Assistance, Outpatient PT Transportation Needs at Discharge Private Vehicle
--- NOTE | 2019-10-30 10:35 | PM.DS.1 ---
History of Present Illness History of Present Illness Date Patient Seen: 10/30/19 Time Patient Seen: 10:35 Chief complaint: [id number] R Total Hip Arthroplasty/Anterior Approach Narrative: The patient has had progressively worsening right hip pain with radiographic changes consistent with arthritis. Non-operative management has failed and the patient has requested total hip replacement. The risks, benefits and alternatives to surgery were discussed with the patient prior to proceeding. Risks discussed included, but were not limited to, failure to relieve pain, leg length discrepancy, dislocation, stiffness, infection, nerve damage, deep venous thrombosis, pulmonary embolism, stroke, coma, heart attack, permanent paralysis and , as well as the potential need for eventual revision of the prosthetic. Discharge Providers Provider Date of admission: 10/28/19 09:43 Discharge Date: 10/30/19 Primary care physician: Beti Camargo MD Consults: 10/28/19 06:00 Consult to Anesthesiology Routine Comment: Consulting Provider: Anesthesiologist Reason for consultation: Regional block for post operative pain control 10/28/19 15:26 Consult to Discharge Planning Routine Comment: Consult to Physical Therapy Evaluate & Treat Comment: Physician Instructions: post op BOLA protocol Consult to Respiratory Therapy Evaluate & Treat Comment: Physician Instructions: Evaluate and treat Discharge provider: Beth Shaw PA-C Summary Hospital Course Discharge Diagnosis: s/p R BOLA Hypertension Hyperlipidemia Depression Asthma Arthritis Hospital Course: Ana was admitted for right total hip arthroplasty anterior approach with Dr. Huang. Hospital course was unremarkable. On postop day 2 she is ready to discharge home. She is eating and voiding without difficulty or assistance. She worked with physical therapy throughout her stay. Status at Discharge Functional status at discharge: uses cane/walker Exam Vital Signs (past 8 hours): - 10/30/19 05:48 10/30/19 07:34 Temperature 98.6 F 97.6 F Pulse Rate 88 77 Respiratory Rate 16 14 Blood Pressure 118/48 L 118/50 L Pulse Oximetry 94 94 Oxygen Delivery Method Room Air Oxygen Flow Rate 0 Narrative Exam Narrative: Patient lying in bed in no acute distress. She is alert orient x3. Calves are soft, compressible, nontender bilaterally. Dressing on anterior hip is CDI. She is able to actively dorsiflex and plantar flex. Sensation intact light touch throughout bilateral lower extremities. She has had intermittent nausea throughout stay. Requesting Zofran for home. Objective Labs Result Diagrams: 10/29/19 05:05 Discharge Plan Discharge Plan Patient Disposition: Home Discharge orders & Medications Prescriptions: New aspirin 81 mg Tablet,Delayed Release (Dr/Ec) 81 mg PO BID Qty: 90 RF: 0 ibuprofen 400 mg Tablet 400 mg PO Q4HR Qty: 90 RF: 0 acetaminophen 500 mg capsule 500 mg PO Q4HR Qty: 90 RF: 0 tramadol 50 mg Tablet 50 mg PO TID PRN (Reason: Pain, Moderate (4-6)) Qty: 20 RF: 0 docusate sodium [DOK] 100 mg Capsule 100 mg PO BID Qty: 30 RF: 0 ondansetron HCl [Zofran] 4 mg tablet 4 mg PO Q6H PRN (Reason: nausea and vomiting) Qty: 30 RF: 0 Continued losartan 50 mg Tablet 50 mg PO DAILY RF: 0 metformin 500 mg Tablet 500 mg PO BID RF: 0 citalopram 20 mg Tablet 20 mg PO DAILY RF: 0 rosuvastatin 10 mg Tablet 10 mg PO DAILY RF: 0 Follow up/Referrals: Beti Camargo MD [Primary Care Provider] - Doris Huang MD [Physician] - Diet/Activity/Treatments Diet: Carb-consistent/Diabetic Activity: weight bearing as tolerated. follow anterior total hip arthroplasty precautions Cold/Heat Therapy: continue cold therapy as needed Skin/Wound/Dressing Care Report to your healthcare provider any signs of infection, such as:: chills, fever, increased pain, unusual drainage and unusual redness Dressing: dressing can be used in shower. do not soak (e.g. bath). contact office for dressing changes Visit Report/Discharge Packet Instructions: DI for Hip Replacement, DI for Prescription Opioid Use Stand Alone Forms: Surgery Discharge Discharge Data Primary Care Provider: Beti Camargo Quality VTE Deep Vein Thrombosis/Pulmonary Embolism Present on Admission: No
--- NOTE | 2019-10-30 12:38 | PC.NURSE ---
Discharge Pt states pain controlled with tylenol and ibuprofen currently. Explained tramadol Rx for d/c to pt and aishaan as well. PIV removed prior to d/c. d/c instructions provided to pt and . aware of f/u apts with Dr Huang and also to contact Dr Huang with any additional questions. Pt states she took all belongings with her. Left in w/c with [employer] escort to car with her .
== END 2019-10-30 12:10 | disposition home or self-care (01) | DRG 470 ==
PROVIDERS: Admitting Provider Orthopaedic Surgery; Family Provider Family Medicine Geriatric Medicine; PCP Family Medicine Geriatric Medicine; Referring Provider Orthopaedic Surgery; Visit Provider Orthopaedic Surgery
PROC: 0SR902A Replacement of Right Hip Joint with Metal on Polyethylene Synthetic Substitute, Uncemented, Open Approach (ICD-10-PCS; CPT 27130; principal; 2019-10-28 12:15)
DX: M16.11 Unilateral primary osteoarthritis, right hip (principal); I10 Essential (primary) hypertension; E78.5 Hyperlipidemia, unspecified; E11.9 Type 2 diabetes mellitus without complications; Z79.84 Long term (current) use of oral hypoglycemic drugs; G25.81 Restless legs syndrome
CPT/HCPCS: 36415; 73502; 76000; 85014; 85018; 93005; 94760; 97116; 97161; 97530; C1776; C9290; J0171; J0690; J1170; J2250; J2405; J2704; J3010